=== PATIENT | female | born 1950 | race Caucasian/White ===

== ENCOUNTER 2016-10-13 07:25 | Day surgery (SDC) | payer MEDICARE, BC ==
--- NOTE | ~2016-10-13 | EGD ---
EGD REPORT [facility] [address] [address] NAME: REYNA LARA : [birth year] STATUS : REG [facility] PAT#: [id number] AGE: 66 ADM/REG DATE : 10/13/16 MR#: [id number] REPORT SERV DATE: 10/13/16 DICTATED BY: AMITA VIRK DATE: 10/13/16 REPORT STATUS : Draft TRANSCRIBED BY: [facility] DATE: 10/13/16 [facility] Center Patient Name: Reyna Lara Date of : 1950 Attending MD: AMITA VIRK MD Procedure Date No Time: 10/13/2016 Procedure: Colonoscopy Indications: High risk colon CA surveillance: Personal history multiple (3 or more) adenomas; last exam 2012. Patient Profile: Informed consent was obtained from the patient by me prior to the procedure. Risks, benefits, and alternatives were discussed including the risk of bleeding, perforation, infection, reaction to medicine, missed lesion, and cardiopulmonary complications. Referring MD: PRASHANTH FERRARO MD Medicines: Monitored Anesthesia Care Complications: No immediate complications. Procedure: Pre-Anesthesia Assessment: - ASA Grade Assessment: III - A patient with severe systemic disease. After I obtained informed consent, the scope was passed under direct vision. Throughout the procedure, the patient's blood pressure, pulse, and oxygen saturations were monitored continuously. The PCF [id number] was introduced through the anus and advanced to the cecum, identified by appendiceal orifice and ileocecal valve. The colonoscope was slowly withdrawn with careful examination all mucosal surfaces including specific attention around flexures and tip deflection behind folds; retroflexion performed in rectum. The colonoscopy was performed without difficulty. The patient tolerated the procedure well. The quality of the bowel preparation was adequate. The ileocecal valve, appendiceal orifice and rectum were photographed. Findings: A sessile polyp was found in the cecum. The polyp was 5 mm in size. The polyp was removed with a cold biopsy forceps. Resection and retrieval were complete. A sessile polyp was found in the rectum. The polyp was 5 mm in size. The polyp was removed with a cold biopsy forceps. Resection and retrieval were complete. Impression: - One 5 mm polyp in the cecum. Resected and retrieved. - One 5 mm polyp in the rectum. Resected and retrieved. EGD REPORT [address] [address] NAME: REYNA LARA : [birth year] STATUS : REG [facility]#: [id number] AGE: 66 ADM/REG DATE : 10/13/16 MR#: [id number] REPORT SERV DATE: 10/13/16 DICTATED BY: AMITA VIRK DATE: 10/13/16 REPORT STATUS : Draft TRANSCRIBED BY: [employer] DATE: 10/13/16 Recommendation: - Patient has a contact number available for emergencies. The signs and symptoms of potential delayed complications were discussed with the patient. Return to normal activities tomorrow. Written discharge instructions were provided to the patient. - Regular diet. - Continue present medications. - Await pathology results. - Repeat colonoscopy for surveillance based on pathology results. Procedure Code(s): --- Professional --- 66144, Colonoscopy, flexible, proximal to splenic flexure; with biopsy, single or multiple Diagnosis Code(s): --- Professional --- K62.1, Rectal polyp D12.0, Benign neoplasm of cecum Z86.010, Personal history of colonic polyps CPT copyright 2013 [employer]. All rights reserved. The codes documented in this report are preliminary and upon dye colorist dyer review may be revised to meet current compliance requirements. AMITA VIRK MD 10/13/2016 9:49 AM This report has been signed electronically. Number of Addenda: 0 Note Initiated On: 10/13/2016 9:17 AM Scope Withdrawal Time 0 hours 10 minutes 30 seconds [id number] [place] [id number]
[~2016-10-13 07:25] MED LIST: AMB10 PO; AMB5 PO; BUTRANS1 EAC2 TOP; BYDUREON2 MG SQ; BYETTA10 SC; COREG12 PO; COREG25 PO; CYMBALTA60 PO; GLUMETZA500 MG PO; LORTAB 5 PO; NORCO1 TA2 PO; PRINZIDE1 TA1 PO; TRULICITY1.5 MG/0.5 SQ; ZESTORETIC PO; ZOCOR20 PO; ZOCOR40 PO; ZOL100 PO
== END 2016-10-13 23:59 | disposition home health service (06) ==
LOC: DMU 07:25
PROVIDERS: Internal Medicine Gastroenterology
PROC: 0DBP8ZX Excision of Rectum, Via Natural or Artificial Opening Endoscopic, Diagnostic (ICD-10-PCS; 2016-10-13)
PROC: 0DBH8ZX Excision of Cecum, Via Natural or Artificial Opening Endoscopic, Diagnostic (ICD-10-PCS; principal; 2016-10-13 08:30)
DX: K62.1 Rectal polyp (principal); K63.5 Polyp of colon; I10 Essential (primary) hypertension; E78.00 Pure hypercholesterolemia, unspecified; G47.33 Obstructive sleep apnea (adult) (pediatric); M19.90 Unspecified osteoarthritis, unspecified site; Z99.81 Dependence on supplemental oxygen; E11.9 Type 2 diabetes mellitus without complications; Z86.010 Personal history of colon polyps
CPT/HCPCS: 82962; 88305